=== PATIENT | female | born 1985 | race Caucasian/White ===

== ENCOUNTER 2017-04-30 08:20 | Emergency (ER) | payer BC ==
[~2017-04-30] VITALS: Ht 1656.1 cm; Wt 94.3 kg
[2017-04-30 09:00] LABS: *URINE HCG, QUAL NEGATIVE (NEGATIVE)
--- NOTE | 2017-04-30 09:27 | NUR ---
Patient discharged to home in stable conditon. Written and verbal after care instructions given. Patient verbalizes understanding of instructions.pt walks in steady gait.
[2017-04-30 09:29] VITALS: BP 143/69
== END 2017-04-30 09:38 | disposition home or self-care (01) ==
LOC: ER 08:20
DX: G43.909 Migraine, unspecified, not intractable, without status migrainosus (principal)
CPT/HCPCS: 70450; 84703; 99285; A4663